=== PATIENT | female | born 1995 | race Caucasian/White ===

== ENCOUNTER → 2019-12-07 09:22 | Outpatient (BNVA) | payer SELFPAY | PROVIDERS: Visit Provider Specialist | DX: M54.5 Low back pain (principal); R20.2 Paresthesia of skin | CPT/HCPCS: 95909 ==

== ENCOUNTER 2019-12-18 10:50 | Outpatient (CLI) | payer SELFPAY ==
--- NOTE | 2019-12-18 11:03 | XR_ITS ---
WS: [id number] LATERAL LUMBAR SPINE: 3 view. Lateral radiographs are performed in upright neutral, flexion and extension to the patient's toleranc e. HISTORY: LOW BACK PAIN COMPARISON: 01/20/2019 Normal lumbar alignment. Disc spaces and vertebral body heights are well-preserved. With flexion and extension there is no instability. XR/XR lumbar spine f/e only [id number] IMPRESSION: No lumbar spine instability.
== END 2019-12-18 10:51 | disposition home or self-care (01) ==
LOC: RAD 10:54
PROVIDERS: Visit Provider Anesthesiology Pain Medicine
DX: M54.5 Low back pain (principal)
CPT/HCPCS: 72120

== ENCOUNTER 2020-01-12 10:50 | Outpatient (CLI) | payer SELFPAY ==
--- NOTE | 2020-01-12 16:00 | MR_ITS ---
WS: [id number] MRI LUMBAR SPINE NONCONTRAST TECHNIQUE: Sagittal T1, T2 and STIR imaging. Axial T1 and T2 imaging. CLINICAL INFORMATION: Low back pain COMPARISON: MRI August 02, 2019 FINDINGS: Mild lumbar curve. No acute compression. No high-grade central canal stenosis. L1-L2: No significant disc bulging. Mild facet arthropathy. Spinal canal and foramen are patent. L2-L3: No significant disc bulging. Mild facet arthropathy. Spinal canal and foramen are patent. L3-L4: Famr-cy-kdjkjwrg facet arthropathy. Spinal canal and foramen are patent. L4-L5: Mild annular bulging. Mild facet arthropathy. Spinal canal and foramen are patent. L5-S1: No significant disc bulging. Spinal canal and foramen are patent. Mild facet arthropathy. Visualized pelvic bony structures: Normal. Paravertebral soft tissues: Normal. MR/MR lumbar spine wo con* [id number] IMPRESSION: 1. Mild lumbar curve. No acute compression. No high-grade central canal stenos is. 2. Mild annular bulging L4-5 without significant spinal canal or foraminal laura rowing. 3. Mild to moderate facet arthropathy described above. 4. No significant interval changes since 2019
== END 2020-01-12 10:51 | disposition home or self-care (01) ==
LOC: RADWPI 10:54
PROVIDERS: PCP Family Medicine; Visit Provider Licensed Practical Nurse
DX: M54.5 Low back pain (principal); M47.816 Spondylosis without myelopathy or radiculopathy, lumbar region
CPT/HCPCS: 72148

== ENCOUNTER 2020-12-26 11:15 | Outpatient (CLI) | payer OTHER, MEDICAID, SELFPAY ==
--- NOTE | 2020-12-26 11:24 | US_ITS ---
WS: [id number] EARLY OBSTETRICAL ULTRASOUND (<14 WEEKS). HISTORY: SUPERVISION,NORMAL ,PRIMIGRAVIDA COMPARISON: None available. Single intrauterine gestational sac is identified. Cardiac activity at 176 BPM. [place]-rump length gal sures 4.4 cm which corresponds to a gestation of 11w2d. Normal-appearing yolk sac and amnion demonstr ated. Small subchorionic hemorrhage.Small subchorionic hemorrhage over the anterior RIGHT gestational sac measures 0.8 x 0.5 x 1.4 cm. No free fluid. There is a large LEFT ovarian cyst measuring 4.7 x 4.6 x 4.4 cm involving nearly the entire ovary. Th e adjacent ovary contains normal vascularity. RIGHT ovary is negative. No free fluid. US/US OB <= 14 weeks fetus [id number] IMPRESSION: 1. Single intrauterine gestation of 11 weeks 2 days with an EDC of 07/15/2021. 2. Very small subchorionic hemorrhage. 3. Large LEFT ovarian cyst with a maximum diameter 4.7 cm.
== END 2020-12-26 11:16 | disposition home or self-care (01) ==
PROVIDERS: PCP Family Medicine; Visit Provider Family Medicine
DX: O46.8X1 Other antepartum hemorrhage, first trimester; Z3A.11 11 weeks gestation of pregnancy; N83.202 Unspecified ovarian cyst, left side
CPT/HCPCS: 76801

== ENCOUNTER 2021-01-20 13:49 | Outpatient (CLI) | payer OTHER, MEDICAID, SELFPAY ==
--- NOTE | 2021-01-20 14:16 | XRR_ITS ---
PROCEDURE INFORMATION: Exam: XR Right Foot Exam date and time: 01/20/2021 2:17 PM Age: 25 years old Clinical indication: Pain and injury or trauma; Other: Item fell on foot; Blunt trauma; Right; Patient HX: Swollen and bruised across top of foot; Additional info: RT foot pain TECHNIQUE: Imaging protocol: XR Right foot. Views: 3 or more views. COMPARISON: No relevant prior studies available. FINDINGS: Bones/joints: Negative for acute bony abnormality. Soft tissues: Unremarkable XR/XR foot RT min 3V* [id number] IMPRESSION: No acute findings.
== END 2021-01-20 13:50 | disposition home or self-care (01) ==
PROVIDERS: PCP Family Medicine; Visit Provider Nurse Practitioner Family
DX: M79.671 Pain in right foot (principal)
CPT/HCPCS: 73630

== ENCOUNTER 2021-02-26 14:44 | Outpatient (CLI) | payer OTHER, MEDICAID, SELFPAY ==
--- NOTE | 2021-02-26 14:58 | US_ITS ---
WS: [id number] ULTRASOUND OB COMPLETE TECHNIQUE: Complete ultrasound. CLINICAL INFORMATION: ANATOMY COMPARISON: None. FINDINGS: Cervix measures 4.0 cm Single interuterine gestation is identified with breech presentation. Placenta is posterior. Placenta grade 0. Normal amniotic fluid volume. cardiac activity: 144 BPM. AGA: 19w3d DAISY by ultrasound: 07/20/2021 Estimated weight: 300 g BDP: 4.4 cm = 19w2d HC: 17.0 cm = 19w4d AC: 14.3 cm = 19w5d FEMUR LENGTH: 3.1 cm = 19w3d Anatomic survey: Upper lip not visualized. Anatomic survey is otherwise normal. Normal stomach. Kidneys and bladder are normal. Normal 3 vessel cord. Normal 3 vessel cord insertion. Normal 4 chamber heart. Normal spine. Intracranial contents are normal. Normal posterior fossa and cisterna magna. US/US OB >= 14 weeks fetus [id number] IMPRESSION: 1. Single intrauterine with visualized cardiac activity. AGA 19w3d w ith DAISY 07/20/2021. 2. Placenta is anterior. No evidence of abruption or previa. 3. Upper lip not visualized. This can be followed up in 2 weeks. anatomi c survey is otherwise normal. 4. Normal amniotic fluid volume.
== END 2021-02-26 14:45 | disposition home or self-care (01) ==
LOC: RAD 14:48
PROVIDERS: PCP Family Medicine; Visit Provider Family Medicine
DX: Z36.89 Encounter for other specified antenatal screening (principal); Z3A.19 19 weeks gestation of pregnancy
CPT/HCPCS: 76805

== ENCOUNTER 2021-04-08 12:42 | Outpatient (CLI) | payer OTHER, MEDICAID, SELFPAY ==
--- NOTE | 2021-04-08 12:45 | US_ITS ---
WS: [id number] ULTRASOUND OB LIMITED TECHNIQUE: Limited ultrasound examination of the fetus. CLINICAL INFORMATION: FOLLOW UP ON THE UPPER LIP COMPARISON: None. FINDINGS: Cervix measures 5.1 cm Single interuterine gestation. presentation is vertex Placental location is posterior. Placenta grade: 0. heart rate 153 BPM. Anatomy: profile with lip/nose visualized today and is normal. [place] [id number] IMPRESSION: Normal profile and lip/nose visualized today.
== END 2021-04-08 12:43 | disposition home or self-care (01) ==
LOC: US 12:42
PROVIDERS: PCP Family Medicine; Visit Provider Family Medicine
DX: Z34.00 Encounter for supervision of normal first pregnancy, unspecified trimester (principal)
CPT/HCPCS: 76816

== ENCOUNTER 2021-05-14 09:18 | Outpatient (CLI) | payer OTHER, MEDICAID, SELFPAY ==
--- NOTE | 2021-05-14 09:26 | US_ITS ---
WS: [id number] RIGHT UPPER QUADRANT ULTRASOUND HISTORY: RUQ ABDOMINAL PAIN COMPARISON: None available. Liver: 15.2 cm in length. Normal size liver. No bile duct dilatation or mass. Gallbladder: Normally distended gallbladder with no stones or wall thickening. CBD: 0.4 cm Pancreas: Normal size and echogenicity. Right kidney: 10.9 cm in length. Normal size kidney. Moderate hydronephrosis. There is also mild dila tation of the proximal ureter. Aorta and IVC: Unremarkable abdominal aorta and IVC. No ascites. US/US gall bladder [id number] IMPRESSION: 1. Moderate RIGHT hydronephrosis likely due to gravid uterus. 2. Normal gallbladder.
== END 2021-05-14 09:19 | disposition home or self-care (01) ==
LOC: RAD 09:24
PROVIDERS: PCP Family Medicine; Visit Provider Family Medicine
DX: R10.11 Right upper quadrant pain (principal); N13.30 Unspecified hydronephrosis
CPT/HCPCS: 76705

== ENCOUNTER 2021-07-01 14:35 | Outpatient (CLI) | payer OTHER, MEDICAID, SELFPAY ==
[2021-07-01] VITALS (13 sets, daily range): BP systolic 121–138; BP diastolic 83–98; PULSE 68–91; RESP 18; TEMP 36.9; BMI 34.4
[2021-07-01 15:51] LABS: Basophils % 0.1 %; Eosinophils % 0.2 %; Hematocrit 32.1 % (37.0-47.0); Hemoglobin 10.8 g/dL (11.5-15.3); Lymphocytes # 1.5 10^3/uL (0.8-4.8); Lymphocytes % 13.7 %; Mean Corpuscular HGB Conc 33.6 g/dL (30.0-36.0); Mean Corpuscular Hemoglobin 30.1 pg (28.0-34.0); Mean Corpuscular Volume 89.4 fl (81-99); Mean Platelet Volume 12.4 fL (7.4-10.4); Monocytes # 0.8 10^3/uL (0.2-0.9); Monocytes % 7.4 %; Neutrophils # 8.34 10^3/uL (1.8-7.7); Neutrophils % 78.2 %; Nucleated Red Blood Cells % 0 %; Platelet Count 173 10^3/cmm (130-400); Red Blood Count 3.59 10^6/uL (4.1-5.3); Red Cell Distribution Width 13.2 % (12.1-15.1); White Blood Count 10.7 10^3/uL (4.0-10.0)
[2021-07-01 16:17] LABS: Alanine Aminotransferase 6 U/L (0-33); Alkaline Phosphatase 146 IU/L (35-105); Anion Gap 15.9 (5-19); Aspartate Amino Transferase 13 U/L (0-32); Blood Urea Nitrogen 6 mg/dL (6-20); Calcium 8.8 mg/dL (8.5-10.5); Carbon Dioxide 20 mmol/L (22-29); Chloride 105 mmol/L (98-107); Globulin 2.6 g/dL (1.3-4.6); Glomerular Filtration Rate 119.9 mL/min (90-130); Glucose 86 mg/dL (65-115); Osmolality Calculated 281 mOsm/kg (285-295); Potassium 3.9 mmol/L (3.5-5.1); Sodium 137 mmol/L (136-145); Total Bilirubin 0.2 mg/dL (0.15-1.2); Total Protein 5.6 g/dL (6.6-8.7); Uric Acid 5.8 mg/dL (2.4-5.7)
[2021-07-01 16:50] LABS: Bilirubin Urine Neg (Negative); Blood Urine Neg (Negative); Glucose Urine UA Norm (Normal); Ketones Urine Negative (Negative); Leukocyte Esterase Urine Negative (Negative); Nitrate Urine Negative (Negative); Protein Urine Neg (Negative); Urine Appearance SL Hazy (CLEAR); Urine Color Straw (Yellow); Urine Creatinine 50 mg/dL (28-217); Urine Protein Random 14 mg/dL; Urobilinogen Urine Norm (Negative); pH Urine 7 (5-7)
[2021-07-01 16:51] LABS: Add Urine Microscopic? YES
[2021-07-01 16:52] LABS: Bacteria Urine 1+ /hpf; RBC Urine RARE /hpf (0-2); Squamous Epithelial Cell Urine 25-40 /hpf (0-5); WBC Urine 0-4 /hpf (0-5)
[2021-07-01 16:53] LABS: Add Urine Culture? No; Calcium Oxalate Crystals Urine RARE /hpf
[2021-07-01 16:56] LABS: UPRO/UCREAT Ratio 0.28 mg/mg CR
[2021-07-02 19:31] LABS: Total Volume, Urine 2800 mL
[2021-07-02 19:32] LABS: Urine Total Protein 5.7 mg/24HR (0-150); Urine Total Protein 24 Hour 159.6 mg/dL (0-150)
== END 2021-07-01 17:10 | disposition home or self-care (01) ==
LOC: OPOB 14:39 → OBGYN 14:40
PROVIDERS: PCP Family Medicine; Visit Provider Family Medicine
DX: O16.9 Unspecified maternal hypertension, unspecified trimester (principal); Z3A.00 Weeks of gestation of pregnancy not specified
CPT/HCPCS: 36415; 59025; 80053; 81001; 82570; 84156; 84550; 85025; 99211

== ENCOUNTER 2021-07-02 06:00 | Outpatient (CLI) | payer OTHER, MEDICAID, SELFPAY | END 2021-07-02 06:01 | disposition home or self-care (01) | LOC: LAB 09-30 15:46 | PROVIDERS: PCP Family Medicine; Visit Provider Family Medicine | DX: Z01.89 Encounter for other specified special examinations (principal) | CPT/HCPCS: 84156 ==

== ENCOUNTER 2021-07-08 11:38 | Outpatient (CLI) | payer OTHER, MEDICAID, SELFPAY ==
--- NOTE | 2021-07-08 11:47 | US_ITS ---
WS: [id number] LIMITED OBSTETRICAL ULTRASOUND HISTORY: LARGE FOR GESTATION AGE FETUS/3RD TRIMESTER COMPARISON: 12/26/2020, 02/26/2021 and 04/08/2021 Presentation: Vertex. Cervix: Obscured by head. Placenta: LEFT lateral. Grade: 1 HEART: FHR of 150 BPM. measurements: BPD = 9.3 cm = 37w5d HC = 33.3 cm = 38w1d AC = 33.8 cm = 37w5d FL = 7.2 cm = 36w5d AVINASH: 9.5 cm, low normal. EFW: 3230 g; 63 %. AGA by ultrasound: 37w4d DAISY by ultrasound: 07/25/2021 Appropriate growth of the fetus since the first trimester ultrasound. US/[place] [id number] IMPRESSION: 1. Single intrauterine gestation of 37 weeks 4 days with an EDC of 07/25/2021. 2. Estimated weight at the 63rd percentile for age. 3. No growth asymmetry identified. 4. Amniotic fluid index is low normal.
== END 2021-07-08 11:39 | disposition home or self-care (01) ==
LOC: RAD 11:41
PROVIDERS: PCP Family Medicine; Visit Provider Family Medicine
DX: O36.63X0 Maternal care for excessive fetal growth, third trimester, not applicable or unspecified (principal); Z3A.37 37 weeks gestation of pregnancy
CPT/HCPCS: 76816

== ENCOUNTER 2021-07-10 18:19 | Inpatient (IN) | payer OTHER, MEDICAID, SELFPAY ==
[2021-07-10] VITALS (21 sets, daily range): BP systolic 112–155; BP diastolic 69–97; PULSE 63–95; RESP 16–17; TEMP 36.1–36.4; BMI 34.2
[2021-07-10 16:53] LABS: Basophils % 0.2 %; Eosinophils % 0.3 %; Hematocrit 33.5 % (37.0-47.0); Hemoglobin 11.2 g/dL (11.5-15.3); Lymphocytes # 1.6 10^3/uL (0.8-4.8); Lymphocytes % 14.8 %; Mean Corpuscular HGB Conc 33.4 g/dL (30.0-36.0); Mean Corpuscular Hemoglobin 29.9 pg (28.0-34.0); Mean Corpuscular Volume 89.3 fl (81-99); Mean Platelet Volume 12.5 fL (7.4-10.4); Monocytes # 0.9 10^3/uL (0.2-0.9); Neutrophils % 76.2 %; Nucleated Red Blood Cells % 0 %; Platelet Count 175 10^3/cmm (130-400); Red Blood Count 3.75 10^6/uL (4.1-5.3); Red Cell Distribution Width 13.2 % (12.1-15.1)
[2021-07-10 17:17] LABS: Alanine Aminotransferase 6 U/L (0-33); Albumin Level 3.2 g/dL (3.5-5.2); Alkaline Phosphatase 168 IU/L (35-105); Anion Gap 17.1 (5-19); Aspartate Amino Transferase 13 U/L (0-32); Blood Urea Nitrogen 6 mg/dL (6-20); Calcium 8.7 mg/dL (8.5-10.5); Carbon Dioxide 20 mmol/L (22-29); Chloride 102 mmol/L (98-107); Globulin 2.9 g/dL (1.3-4.6); Glomerular Filtration Rate 100.4 mL/min (90-130); Glucose 62 mg/dL (65-115); Osmolality Calculated 276 mOsm/kg (285-295); Potassium 4.1 mmol/L (3.5-5.1); Sodium 135 mmol/L (136-145); Total Bilirubin 0.3 mg/dL (0.15-1.2); Total Protein 6.1 g/dL (6.6-8.7); Uric Acid 5.4 mg/dL (2.4-5.7)
[2021-07-10 17:27] LABS: Urine Creatinine 54 mg/dL (28-217)
[2021-07-10 17:29] LABS: UPRO/UCREAT Ratio 0.98 mg/mg CR; Urine Protein Random 53 mg/dL
[2021-07-10 17:31] LABS: Add Urine Microscopic? YES; Bilirubin Urine Neg (Negative); Blood Urine Neg (Negative); Glucose Urine UA Norm (Normal); Ketones Urine Negative (Negative); Leukocyte Esterase Urine Negative (Negative); Nitrate Urine Negative (Negative); Protein Urine Trace (Negative); Specific Gravity, Urine 1.005 (1.005-1.030); Urine Appearance SL Hazy (CLEAR); Urine Color Yellow (Yellow); Urobilinogen Urine Norm (Negative); pH Urine 7 (5-7)
[2021-07-10 17:35] LABS: Add Urine Culture? No; Bacteria Urine 1+ /hpf; Mucus Urine TRACE /hpf; Squamous Epithelial Cell Urine 25-40 /hpf (0-5)
[2021-07-10] MEDS: miSOPROStol 100 mcg tablet 25 MCG VAGINAL (20:13)
[2021-07-11] VITALS (72 sets, daily range): BP systolic 118–164; BP diastolic 64–103; PULSE 60–171; RESP 14–18; TEMP 36–37.4; O2SAT 88–99
[2021-07-11] MEDS: dextrose 5%-lactated ringers 1,000 ML 125 ML IV ×2 (00:49→08:55)
[2021-07-11] MEDS: oxytocin 30 UNIT/500 ML BAG IV (00:49)
--- NOTE | 2021-07-11 06:47 | PM.HP ---
Providers/Chief Complaint Admitting Physician: Eh Freeman MD Primary Care Provider: Eh Freeman MD Chief Complaint: Elevated blood pressure History of Present Illness Rachel Bhatti is a 26 year old at 38.6 weeks gestation by LMP consistent with 11-week ultrasound. Her is complicated by frequent headaches, syncopal episode at 11 weeks, now with gestational hypertension. The patient has been having blood pressures that were intermittently elevated and they became more steadily elevated in the 140s to 150s over 90s to 100. The patient has been feeling nauseous off and on for the last number of weeks. She began having some mild headaches but these resolved without medication. Because of the elevated blood pressures, she presented to labor and delivery triage. Her labs were unremarkable other than a urine protein creatinine ratio that was elevated. She had a 24-hour urine protein done on the that was 155. I spoke with the patient and because of her blood pressure is starting to increase we decided that it would be recommended to start induction process to prevent her blood pressure from continuing to worsen. The patient was in agreement with this so she was kept for induction of labor. The patient was started on Cytotec overnight and had spontaneous rupture membranes at approximately midnight. She was then started on IV Pitocin for augmentation of labor. She denies any active headaches, flashes of light, vision changes, chest pains, shortness of breath, vomiting, diarrhea, constipation, dysuria, leakage of fluid, vaginal bleeding. Medications/Allergies Home Medications Medication Instructions Recorded Confirmed Last Taken Type prenat.vits,terese,rtr-wxvc-cseeo 1 tab PO DAILY 07/10/21 07/10/21 07/08/21 21:00 History [ Vitamin] Allergies Allergy/AdvReac Type Severity Reaction Status Date / Time cyclobenzaprine Allergy Severe Hives Verified 01/25/20 13:09 [From Flexeril] PFSH Acute PFSH: Medical History Low back pain of over 3 months duration Lumbar spondylosis Numbness and tingling of both legs Surgical History No pertinent past surgical history Family History Grandfather Hypertension Mother Cancer Grandmother Cancer Family/Other Heart disease Family/Other Hypertension Social History (Updated 07/11/21 @ 06:53 by Eh Freeman MD) Smoking and tobacco status: never smoked Alcohol intake: former Substance/Drug Use: never Household members: significant other Marital status: Single Current occupational status: employed Current occupation: [employer] History of recent travel: No Female Reproductive History: : 1 Vitals/I&O/Wt Last Vital Signs Temp 97.3 F L 07/11/21 04:32 Pulse 93 07/11/21 06:38 Resp 16 07/11/21 04:14 BP 132/90 07/11/21 06:38 07/10/21 07/10/21 07/11/21 14:59 22:59 06:59 Intake Total 15.501 / 15.501 Balance 15.501 / 15.501 Weight last 48 hrs Weight 187 lb Physical Exam Narrative: EXAM NARRATIVE: General: Alert and oriented x3 Eyes: Pupils equal round and reactive to light and accommodation Mouth: Mucous membranes moist, pharynx non-erythematous Cardiac: Regular rate and rhythm without murmurs Lungs: Clear to auscultation bilaterally without wheezes, crackles or rhonchi Abdomen: Soft, non-tender, fundus consistent with gestational age Cervix: 4/80/-2/anterior Extremities: Trace edema in the bilateral lower extremities Data : 07/10/21 16:20 07/10/21 16:20 A&P Assessment and plan (1) Gestational hypertension: Status: Acute (2) Intrauterine : Status: Acute Additional A&P Information The patient's induction has been started overnight and she is currently making good change. She is now 4 cm dilation. We will continue with IV Pitocin. The patient would prefer not to have a laboring epidural. I am okay with her having one if she changes her mind. Stadol for pain control. She had 1 blood pressure over 160 while she was tensed up. This self resolved. We will continue to follow for the antihypertensive protocol. Her 24-hour urine protein was in the 155 range 9 days ago. Her urine protein creatinine ratio was elevated yesterday. Since her blood pressures have been stable we will hold off on magnesium for now, but will need to watch closely. If her blood pressures are continuing to increase, and IV magnesium will need to be started. Currently heart tones are category 1 tracing. Contractions are every 2 to 5 minutes. Continue with induction of labor. All questions were answered. Attestations Medical Necessity Statement*: The patient will be here for greater than 2 midnights due to routine intrapartum and management of labor and delivery. Coding Level of Care Code Acute [employer] Specialist for Chg Fwd Diagnoses Gestational hypertension O13.9 Intrauterine Z34.90
[2021-07-11] MEDS: ondansetron 2 mg/ML SDV 2 mL 4 MG IVP (07:07)
[2021-07-11] MEDS: butorphanol 2 mg/mL SDV 1 mL 1 MG IVP (07:38)
[2021-07-11] MEDS: lidocaine 2% INJ 20 mL INJECTION (11:04)
[2021-07-11] MEDS: miSOPROStol 200 mcg Tablet 800 MCG PR (11:09)
[2021-07-11] MEDS: oxytocin 30 UNIT/500 ML BAG 600 UNIT IV (11:27)
--- NOTE | 2021-07-11 12:01 | P.PCNOB_ITS ---
Delivery Note: Date of delivery: July 11, 2021 Pre-delivery diagnoses: 1. Intrauterine at 38.6 weeks gestation 2. Syncopal episode at 11 weeks 3. Gestational hypertension Post-delivery diagnoses: 1. Intrauterine spontaneous vaginal delivery at 38.6 weeks gestation 2. Syncopal episode at 11 weeks 3. Gestational hypertension 4. Delivery of healthy female weighing 7 pounds 7 ounces with Apgars of 4 and 8. Procedure: Spontaneous vaginal delivery Op report anesthesia: Other (Stadol x 1 dose) Estimated blood loss (mL): 200 Findings: Rachel Bhatti is a 26 year old G1 now P1 status post spontaneous vaginal delivery at 38.6 weeks gestation by LMP consistent with 11-week ultrasound. Her was complicated by frequent headaches, syncopal episode at 11 weeks, now with gestational hypertension. Pre-Delivery Course: The patient presented to labor and delivery secondary to elevating blood pressures. She was started on Cytotec on the evening of 07/10/2021 and had spontaneous rupture membranes at approximately midnight. She was then started on IV Pitocin for augmentation of labor. The patient made good change and was 4 cm x 630 a.m. on 07/11/2021. She received 1 dose of Stadol. She did not want a laboring epidural. She continued to make change and was complete by 9:57 AM on 07/11/2021. Delivery: The patient began pushing at night a anterior lip was present and this was easily reduced during contractions. The patient pushed very well and the infant delivered in the OP position at 10:52 AM on 07/11/2021. A nuchal cord was present and was reduced. The right shoulder was the anterior shoulder and it delivered with ease. The rest of the infant delivered without complication. The 's mouth and nose were bulb suctioned by myself. The had little tone and took a few small breaths right after delivery. She was placed on the mother's chest where the nurses were waiting to care for her. The 's cord was clamped by myself after approximately 30 seconds and cut by the 's father. The infant was then taken to the warmer for further evaluation. Cord blood was obtained. Cord was then drained of blood and traction was placed on the umbilical cord. The uterus was massaged and the placenta delivered at 10:59 AM on 07/11/2021. IV Pitocin was bolused. The placenta was noted to be intact with a central umbilical cord insertion site. Next the cervix was inspected and no lacerations were noted. The patient had moderate bleeding. The uterus was massaged and this persisted, so 800 mcg of Cytotec were placed rectally. The vaginal wall was inspected and a second- degree left labial wall laceration was noted. 1% lidocaine was placed locally and 3-0 Vicryl was placed in a running fashion to repair the laceration. The patient tolerated this well. Rectal exam was done and no sutures were noted in the rectum. The patient's bleeding persisted moderate in nature, so a catheter was placed and the bladder was drained of urine. The patient tolerated this well. Her bleeding decreased significantly after this. Currently both the mother and are doing well. A&P Assessment and plan (1) Gestational hypertension: Status: Acute (2) Intrauterine : Status: Acute Coding Level of Care Code Acute Supervisor Pipe [employer]s for Chg Fwd Diagnoses Gestational hypertension O13.9 Intrauterine Z34.90
[2021-07-11] MEDS: ibuprofen 800 mg tablet PO ×2 (12:27→21:49)
--- NOTE | 2021-07-11 12:58 | PC.NURSE ---
Lacatation note Baby still transitioning and not ready to feed. Doing [id number]-[id number] with dad at present. Encouraged as much [id number] with mom or dad as possible until baby ready to feed.
[2021-07-11] MEDS: docusate sodium 100 mg Capsule PO (21:49)
[2021-07-12 01:00] VITALS: BP 130/83; PULSE 81; RESP 16
[2021-07-12 01:16] LABS: Hemoglobin 9.9 g/dL (11.5-15.3); Mean Corpuscular Hemoglobin 29.6 pg (28.0-34.0); Mean Corpuscular Volume 89.8 fl (81-99); Mean Platelet Volume 12.4 fL (7.4-10.4); Platelet Count 142 10^3/cmm (130-400); Red Blood Count 3.34 10^6/uL (4.1-5.3); Red Cell Distribution Width 13.3 % (12.1-15.1); White Blood Count 17.9 10^3/uL (4.0-10.0)
[2021-07-12 04:53] VITALS: BP 128/84; PULSE 80; RESP 16
[2021-07-12 07:45] VITALS: BP 142/81; PULSE 88; RESP 18; TEMP 36.8
[2021-07-12] MEDS: prenatal vitamin Capsule 1 CAP PO (07:51)
[2021-07-12] MEDS: ibuprofen 800 mg tablet PO (07:51)
[2021-07-12] MEDS: docusate sodium 100 mg Capsule PO (07:54)
--- NOTE | 2021-07-12 09:23 | PM.DCS ---
Discharge Providers Date of Admission: 07/10/21 18:19 Date of Discharge: July 12, 2021 Attending Provider at Admission: Eh Freeman MD Attending Provider at Discharge: Eh Freeman MD Primary Care Provider: Eh Freeman MD Diagnoses at Discharge Discharge Diagnosis (1) Gestational hypertension: Status: Resolved (2) Intrauterine : Status: Resolved Other Information Additional DC diagnoses/information: Post-delivery diagnoses: 1. Intrauterine spontaneous vaginal delivery at 38.6 weeks gestation 2. Syncopal episode at 11 weeks 3. Gestational hypertension 4. Delivery of healthy infant female weighing 7 pounds 7 ounces with Apgars of 4 and 8. Reason for Visit Reason for Visit: Elevated blood pressure Hospital Course Hospital Course Pre-Delivery Course: The patient presented to labor and delivery secondary to elevating blood pressures. She was started on Cytotec on the evening of 07/10/2021 and had spontaneous rupture membranes at approximately midnight. She was then started on IV Pitocin for augmentation of labor. The patient made good change and was 4 cm x 630 a.m. on 07/11/2021. She received 1 dose of Stadol. She did not want a laboring epidural. She continued to make change and was complete by 9:57 AM on 07/11/2021. Delivery: The patient began pushing at night a anterior lip was present and this was easily reduced during contractions. The patient pushed very well and the infant delivered in the OP position at 10:52 AM on 07/11/2021. A nuchal cord was present and was reduced. The right shoulder was the anterior shoulder and it delivered with ease. The rest of the delivered without complication. The 's mouth and nose were bulb suctioned by myself. The had little tone and took a few small breaths right after delivery. She was placed on the mother's chest where the nurses were waiting to care for her. The 's cord was clamped by myself after approximately 30 seconds and cut by the 's father. The infant was then taken to the warmer for further evaluation. Cord blood was obtained. Cord was then drained of blood and traction was placed on the umbilical cord. The uterus was massaged and the placenta delivered at 10:59 AM on 07/11/2021. IV Pitocin was bolused. The placenta was noted to be intact with a central umbilical cord insertion site. Next the cervix was inspected and no lacerations were noted. The patient had moderate bleeding. The uterus was massaged and this persisted, so 800 mcg of Cytotec were placed rectally. The vaginal wall was inspected and a second-degree left labial wall laceration was noted. 1% lidocaine was placed locally and 3-0 Vicryl was placed in a running fashion to repair the laceration. The patient tolerated this well. Rectal exam was done and no sutures were noted in the rectum. The patient's bleeding persisted moderate in nature, so a catheter was placed and the bladder was drained of urine. The patient tolerated this well. Her bleeding decreased significantly after this. course: The patient is doing well and has had no problems with bleeding. Her pain has been well controlled. She is ambulating, voiding, passing gas and tolerating food by mouth. Routine discharge instructions were discussed with the patient and all questions were answered. The patient is in agreement with the current plan of care. Physical Exam Narrative: EXAM NARRATIVE: General: Alert and oriented x3 Cardiac: Regular rate and rhythm without murmurs Lungs: Clear to auscultation bilaterally without wheezes, crackles or rhonchi Abdomen: Soft, mild tenderness over the uterus. Uterus is firm and 2 cm below the umbilicus. Extremities: +1 pitting edema in the bilateral lower extremities Discharge Data Data Completed and Pending: Labs from last 24 hours 07/12/21 01:08 WBC 17.9 H RBC 3.34 L Hgb 9.9 L Hct 30.0 L MCV 89.8 MCH 29.6 MCHC 33.0 RDW 13.3 Plt Count 142 MPV 12.4 H Vitals: Last Vital Signs Temp 99.3 F 07/11/21 19:00 Pulse 80 07/12/21 04:53 Resp 16 07/12/21 04:53 BP 128/84 07/12/21 04:53 Pulse Ox 99 07/11/21 07:53 Discharge Plan Discharge Patient Disposition: Home Condition: Good Prescriptions: New ibuprofen 800 mg Tablet 800 mg PO TID Qty: 60 RF: 0 docusate sodium 100 mg Capsule 100 mg PO BID Qty: 30 RF: 0 ferrous sulfate 325 mg (65 mg iron) Tablet,Delayed Release (Dr/Ec) 325 mg PO BIDWM Qty: 60 RF: 0 Continued prenat.vits,terese,[id number] Tablet 1 tab PO DAILY RF: 0 Discharge Orders: Discharge Order (Routine); Ordered 07/12/21 Ordered By: Eh Freeman Referrals: Eh Freeman MD [Primary Care Provider] - 1-3 days (Please call the office Wednesday morning to schedule your post- appointment. ) Discharge Diet: Regular Discharge Activity: Limit activity as instructed Patient Instructions: Depression (DC), Expression, Collection and Storage of Breast Milk (DC), Preeclampsia and Eclampsia After Delivery (GEN), OB Discharge Report, OB Food/Drug Interaction Guide, Opioid Safety, OB [facility], OB Vaginal Deliveries, Abnormal Bleeding Activity Restrictions/Additional Instructions: Nothing per vagina for 6 weeks Discharge Attestations Time Spent in Discharge Care*: greater than 30 min Quality Metrics Clinical Quality Measures During this hospital stay, did patient experience: None Coding Level of Care Code Acute Chg FW DC note Diagnoses Gestational hypertension O13.9 Intrauterine Z34.90
[2021-07-12 14:30] VITALS: BP 134/87; PULSE 98; RESP 18; TEMP 37.1
[2021-07-12 14:45] VITALS: BP 134/87; PULSE 98; RESP 18; TEMP 37.1
== END 2021-07-12 14:45 | disposition home or self-care (01) | DRG 807 ==
LOC: OPOB 18:20 → OBGYN 18:20
PROVIDERS: Admitting Provider Family Medicine; PCP Family Medicine; Visit Provider Family Medicine
DX: O13.4 Gestational [pregnancy-induced] hypertension without significant proteinuria, complicating childbirth (principal); Z37.0 Single live birth; Z3A.38 38 weeks gestation of pregnancy; O71.4 Obstetric high vaginal laceration alone; O69.81X0 Labor and delivery complicated by cord around neck, without compression, not applicable or unspecified
CPT/HCPCS: 36415; 59025; 59409; 80053; 81001; 82570; 84156; 84550; 85025; 85027; 98960; 99211; J0595; J2405